=== PATIENT | male | born 1945 | race Caucasian/White ===

== ENCOUNTER 2016-04-02 07:30 | Observation (INO) | payer OTHER, MEDICARE ==
[2016-04-22] MEDS ORDERED: CHLORHEXIDINE GLUC HIBICLENS 118 ML BTL TP ONE (12:00)
[2016-04-23] MEDS ORDERED: ceFAZolin 2 GM/DEXTROSE 100 ML IV ONE ×2 (06:00→13:30)
[2016-04-23] MEDS ORDERED: THROMBIN (RECOMBINANT) 5,000 UNIT VIAL TP ONE ×2 (10:57→16:35)
[2016-04-23] MEDS ORDERED: BUPIVACAINE/EPI 0.25% 30 ML SDV ONE (10:57)
[2016-04-23] MEDS ORDERED: BACITRACIN 50,000 UNITS/10 ML SYR IRR ONE (10:58)
[2016-04-23] MEDS ORDERED: LIDOCAINE 1% 5 ML SDV ID PRN (12:55)
[2016-04-23] MEDS ORDERED: LR 1,000 ML IV ONE (12:55)
[2016-04-23] MEDS ORDERED: CHLORHEXIDINE GLUC HIBICLENS 118 ML BTL TP ONE (13:00)
[2016-04-23] MEDS ORDERED: CEFAZOLIN 2 GM/DEXTROSE/100 ML BAG IV ONE (13:09)
[2016-04-23] MEDS ORDERED: HYDROmorphONE/DILAUDID 1 MG/ML SYR IVP PRN (14:08)
[2016-04-23] MEDS ORDERED: morphINE PCA 30 MG/30 ML PCA IV PRN (14:08)
[2016-04-23] MEDS ORDERED: diphenhydrAMINE 25 MG CAP PO PRN (14:08)
[2016-04-23] MEDS ORDERED: TEMAZEPAM 15 MG CAP PO PRN (14:08)
[2016-04-23] MEDS ORDERED: DIAZEPAM 10 MG/2 ML SYR IVP PRN (14:08)
[2016-04-23] MEDS ORDERED: ONDANSETRON 4 MG/2 ML VIAL IVP PRN (14:08)
[2016-04-23] MEDS ORDERED: LACTULOSE 20 GM/30 ML UDCUP PO PRN (14:08)
[2016-04-23] MEDS ORDERED: MAGNESIUM HYDROXIDE 30 ML UDCUP PO PRN (14:08)
[2016-04-23] MEDS ORDERED: POLYETHYLENE GLYCOL 3350 17 GM PKT PO PRN (14:08)
[2016-04-23] MEDS ORDERED: HYDROCODONE/APAP 5/325 TAB PO PRN (14:08)
[2016-04-23] MEDS ORDERED: NALOXONE HCL 0.4 MG/ML INJ IVP PRN (14:08)
[2016-04-23] MEDS ORDERED: DIAZEPAM 5 MG TAB PO PRN (14:08)
[2016-04-23] MEDS ORDERED: BISACODYL 10 MG SUPP PR PRN (14:08)
[2016-04-23] MEDS ORDERED: ROCURONIUM 50 MG/5 ML VIAL ONE (14:10)
[2016-04-23] MEDS ORDERED: PROPOFOL/EMULSION 500 MG/50 ML BOTTLE IV ONE ×2 (14:10→16:01)
[2016-04-23] MEDS ORDERED: METOCLOPRAMIDE 10 MG/2 ML VIAL ONE (14:11)
[2016-04-23] MEDS ORDERED: MIDAZOLAM 2 MG/2 ML VIAL ONE (14:11)
[2016-04-23] MEDS ORDERED: LIDOCAINE 2% 100 MG/5 ML SYR IVP ONE (14:11)
[2016-04-23] MEDS ORDERED: DEXAMETHASONE 4 MG/ML VIAL ONE ×2 (14:11)
[2016-04-23] MEDS ORDERED: DESFLURANE 240 ML BOTTLE IH ONE (15:08)
[2016-04-23] MEDS ORDERED: SUGAMMADEX SODIUM 200 MG/2 ML VIAL IVP ONE (17:23)
--- NOTE | 2016-04-23 17:50 | SOAPPROG ---
SOAP Progress Note Assessment/Plan: Post Op Visit: S: Awake and alert. Pt with expected neck pain O: AFVSS/PERRLA/EOMI no droop CN 2-12 grossly intact +lt touch 5/5 BUE/BLE = neck soft and supple CDI A/P: 70 yo male that is s/p ACDF C3/4 and C4/5 -orders in place -call with any questions or concerns -pt seen by Dr Calixto as well 04/23/16 17:47 ICD10 Worksheet Patient Problems: Problems Problem Status Onset Arthrodesis status Acute Cervicalgia Acute Stenosis, cervical spine Acute - ICD10 Problem Qualifiers (1) Cervicalgia (2) Stenosis, cervical spine (3) Arthrodesis status
[2016-04-23] MEDS ORDERED: fentaNYL 100 MCG/2 ML INJ ONE (19:14)
--- NOTE | 2016-04-23 20:09 | GOP ---
[f rep st] OPERATIVE REPORT DATE OF OPERATION: 04/23/2016 SURGEON: Aminata Calixto MD [employer]OL [employer] DRIVER: Richard New PA-C PREOPERATIVE DIAGNOSIS: 1. Severe spinal stenosis with cervical myelopathy C3-4, C4-5. 2. Prior cervical fusion C7-T1. 3. Cervical degenerative disk disease throughout the cervical spine. POSTOPERATIVE DIAGNOSIS: 1. Severe spinal stenosis with cervical myelopathy C3-4, C4-5. 2. Prior cervical fusion C7-T1. 3. Cervical degenerative disk disease throughout the cervical spine. PROCEDURE PERFORMED: Anterior cervical diskectomy with arthrodesis and decompression C3-4, C4-5. (2 6011, 2252), placement of biomechanical intervertebral device C3-4, C4-5 (90647 x 2), same-incision bone graft harvest, microscope, anterior cervical instrumentation C3, C4, C5 (21711). FINDINGS: ESTIMATED BLOOD LOSS: 400 cc. DESCRIPTION OF PROCEDURE: The patient was taken to the operating room, placed in the supine positio n. General anesthesia was begun. A midline shoulder roll was placed. His neck was kept neutral. The occiput was extended. He was sterilely prepped and draped in usual fashion. We made a transver se incision in the superior left neck crease. The subcutaneous tissue was dissected with Bovie caut lorena just through the platysma, and we then used a combination of sharp and blunt dissection, working our way down medial to the sternocleidomastoid and lateral to the strap muscles, down to the prever tebral space. The dissection was very straightforward and took really no time at all. We set the e sophagus medially, shot a localizing x-ray, and then dissected the longus colli muscles off the spin e at C3-4, C4-5. We placed distraction pins at C4 and C5 and then under the microscope removed the C4-5 disk and drilled the cartilaginous endplates. We then harvested subchondral bone for autologou s grafting purposes and chose an 8 x 14 x 16 mm lordotic PEEK cage coated with titanium. It was pac ked with a large amount of bone autograft. We then under the scope opened the PLL and decompressed the thecal sac and the neural foramina bilaterally. A nice decompression was obtained. There was s ome epidural bleeding, particularly at the shoulder of the exiting C5 roots, and this was easily con trolled. We placed our implant in at this level and we were happy with its positioning. We then mo nirav our distraction pin and went to the C3-4. Here, we did likewise. We removed the disk completel y, drilled and harvested subchondral bone for autologous grafting purposes, and then we began to ope n the posterior longitudinal ligament and decompress the thecal sac. The PLL was thickened in this location and there was really very substantial epidural bleeding. We were able to get an excellent, wide decompression at this level as well, but the epidural bleeding was profuse and we continued to work through it. It was not controllable with bipolar because it was really at the bony edges down underneath the decompressed area, but it was easily controlled with a small piece of Gelfoam. We r emoved our distraction pins and harvested some additional bone graft material from the ventral osteo phytes at C3-4, 4-5, and use this to pack into an 8 mm lordotic PEEK intervertebral device. We then reinserted the distraction pins, distracted at C3-4, removed the Gelfoam that was in the disk space , and there was virtually no bleeding. We put a tiny piece of Gelfoam just posterior to our implant and then put the implant in, and there was no bleeding once the implant was in place. Motor and so matosensory-evoked potentials were stable throughout surgery. We released our distraction pins, the n removed them, then placed Gelfoam bullets in the holes that remained, and then chose a 43 mm Zevo plate and bent the plate to increase the cervical lordosis. We then placed 15 mm screws rostrally a nd caudally, shot an x-ray. We were happy with the hardware. We then placed the remaining 4 screws in (for a total of 6) and locked them according to company specification, and this was confirmed wi th both my PA and the rep in the room. All 6 screws had been locked. We then achieved meticulous h emostasis and closed the incision in multiple layers using Vicryl sutures. Running PDS was placed i n the skin itself. There were no complications. COMPLICATIONS: None. INSTRUMENTATION: A 43 mm Med[employer]onic Zevo plate with 3.5 x 15 mm screws and we used 8 x 16 x 14 mm an atomic PTC cages. INDICATION FOR THE PROCEDURE: The patient is a 70-year-old with chronic left C8 radiculopathy that responded relatively well to C7-T1 anterior cervical diskectomy and fusion, but he had critical spin al stenosis at 3-4, 4-5, and since his prior surgery, over the last several months, he has developed increasing difficulty with his arms, and his MRI does demonstrate critical stenosis at those upper levels. I suggested a 2-level ACDF at C3-4, C4-5, and the risk of esophageal injury, carotid injury , recurrent laryngeal nerve injury, pseudoarthrosis, adjacent segment disease, the possible need for posterior spine surgery, was discussed. His MRI did demonstrate circumferential compression at 3-4 , 4-5, and the anterior compression would be addressed with this approach. I did not want to consid er a posterior fusion at this time, but this may become necessary in the future. He understood ther e was risk of additional spine surgery, as well as risk of spinal cord injury, although that risk is quite low. He accepted these risks and wanted to proceed. /[id number]/MODL
[2016-04-23] MEDS: NS W/ 20 KCl/L 1,000 ML IV SCH (20:29)
[2016-04-23] MEDS: SENNOSIDES/DOCUSATE SODIUM TAB PO SCH (20:52)
[2016-04-23] MEDS: ONDANSETRON DISINTEGRATING 4 MG TAB PO PRN (20:57)
[2016-04-23] MEDS ORDERED: FAMOTIDINE 20 MG/NACL 50 ML IV SCH (21:00)
[2016-04-24] MEDS: oxyCODONE IR 5 MG TAB PO PRN ×3 (00:21→14:01)
[2016-04-24] MEDS: ACETAMINOPHEN 325 MG TAB PO PRN ×2 (05:22→12:42)
[2016-04-24] MEDS: METHOCARBAMOL 750 MG TAB PO PRN ×2 (07:23→16:09)
--- NOTE | 2016-04-24 07:25 | NEUSURGPN ---
Date of Surgery: 04/23/16 Post Op Day: 1 Assessment/Plan: Assessment: 70 yo male that is s/p ACDF C3/4 and C4/5 POD #1 Plan: -tolerating collar fine -PT/OT/ST pending -collar at all times -pending c spine xrays -continue with current pain management strategy -call with any questions or concerns -pt seen by Dr Calixto as well -pending dc depending on how he does with therapies 04/23/16 17:47 Subjective: Awake and alert. NAD. Eating/drinking and voiding. No f/c/n/v/d. No smith/chest /abd or gu complaints. Objective: AFVSS/PERRLA/EOMI no droop CN 2-12 grossly intact +lt touch 5/5 BUE/BLE = neck soft and supple CDI Neuro Check Frequency: per routine Urinary Catheter in Place: No - Physician Discussed Patient with : Durga Patient Seen by : Durga Neurosurgery Physical Exam - Vitals, I&O, Labs I and O 04/23/16 04/24/16 04/25/16 05:59 05:59 05:59 Intake Total 600 Output Total 600 Balance 0 Weight 65.771 kg Intake: Oral (ml) 600 Output: Urine (ml) 600 Urinal 600 Other: Intake Quantity Yes Sufficient Number of Voids Urinal 1 Post Void Residual Scan Volume (ml) Urinal 63 Vital Signs Temp Pulse Resp BP Pulse Ox 36.6 C 76 15 114/68 98 04/24/16 04:46 04/24/16 04:46 04/24/16 04:46 04/24/16 04:46 04/24/16 04:46 ICD10 Worksheet Patient Problems: Problems Problem Status Onset Arthrodesis status Acute Cervicalgia Acute Stenosis, cervical spine Acute - ICD10 Problem Qualifiers (1) Cervicalgia (2) Stenosis, cervical spine (3) Arthrodesis status
[2016-04-24] MEDS: ONDANSETRON DISINTEGRATING 4 MG TAB PO PRN (08:27)
[2016-04-24] MEDS: SENNOSIDES/DOCUSATE SODIUM TAB PO SCH (08:34)
[2016-04-24] MEDS ORDERED: FAMOTIDINE 20 MG TAB PO SCH (09:00)
[2016-04-24] MEDS: NS W/ 20 KCl/L 1,000 ML IV SCH (11:21)
[2016-04-24 11:39] VITALS: O2SAT 96
[2016-04-24 15:41] VITALS: BP 120/74; PULSE 75; RESP 15; TEMP 97.5
[2016-04-26] MEDS ORDERED: ENOXAPARIN 40 MG/0.4 ML SYR SC SCH (09:00)
== END 2016-04-24 17:33 | disposition home or self-care (01) ==
LOC: INTOOBSV 04-23 11:30 → F3N 04-23 11:30
PROVIDERS: ADMIT Neurological Surgery; ATTEND Neurological Surgery
PROC: 0RG2070 Fusion of 2 or more Cervical Vertebral Joints with Autologous Tissue Substitute, Anterior Approach, Anterior Column, Open Approach (ICD-10-PCS; 2016-04-23)
PROC: 0PU307Z Supplement Cervical Vertebra with Autologous Tissue Substitute, Open Approach (ICD-10-PCS; 2016-04-23)
PROC: 0RG20A0 Fusion of 2 or more Cervical Vertebral Joints with Interbody Fusion Device, Anterior Approach, Anterior Column, Open Approach (ICD-10-PCS; principal; 2016-04-23 13:00)
PROC: 0PH304Z Insertion of Internal Fixation Device into Cervical Vertebra, Open Approach (ICD-10-PCS; 2016-04-23 13:00)
DX: M48.02 Spinal stenosis, cervical region (principal); M47.12 Other spondylosis with myelopathy, cervical region; Z98.1 Arthrodesis status; M50.020 Cervical disc disorder with myelopathy, mid-cervical region, unspecified level; M50.30 Other cervical disc degeneration, unspecified cervical region; M54.12 Radiculopathy, cervical region; M79.602 Pain in left arm
CPT/HCPCS: 92610-GN; 97161-GP; 97165-GO; 97535-GO; C1713; G8978-GP-CI; G8979-GP-CH; G8987-GO-CJ; G8988-GO-CH; G8996-GN-CI; G8997-GN-CI; J0690; J1100; J2001; J2250; J2405; J2704; J2765; J3010

== ENCOUNTER 2016-04-25 10:15 | Inpatient (IN) | payer OTHER, MEDICARE ==
[2016-04-25] MEDS ORDERED: ONDANSETRON 4 MG/2 ML VIAL IVP ONE (10:54)
[2016-04-25] MEDS ORDERED: HYDROmorphONE/DILAUDID 1 MG/ML SYR IVP ONE (10:54)
--- NOTE | 2016-04-25 11:12 | EDPHY ---
H & P Time Seen by Provider: 04/25/16 11:09 HPI/ROS: Chief complaint. Postoperative pain and fever HPI. 70-year-old male 2 days postop for ACDF of cervical 3/4, 4/5 here for pain control. He is using oxycodone without relief. He has bilateral shoulder pain as well as neck pain. Fever this morning to 99.9 degrees. Some cough and congestion. Chills yesterday. No urinary symptoms or vomiting or diarrhea. ROS Constitutional. Fever and chills Eyes. no problems with vision ENT. no sore throat, no nasal drainage Cardiovascular. no chest pain Respiratory. no shortness of breath, no cough Abdominal. no abdominal pain, no nausea/vomiting, no diarrhea . no problems urinating MS. Neck pain and bilateral shoulder pain Skin. no rash Lymph. no swollen glands Neuro. no headache, no dizziness, no difficulty walking or with speech Past Medical/Surgical History: Past medical history significant for prior surgical surgery rotator cuff surgery Social History: , nonsmoker, no alcohol Smoking Status: Never smoked Physical Exam: General Appearance: Alert well-developed male mild distress vital signs are stable. Afebrile Eyes: Pupils equal and round no pallor or injection. ENT, pharynx without injection Respiratory: No retractions mild inspiratory expiratory rhonchi Cardiovascular: Regular rate and rhythm. Gastrointestinal: Abdomen is soft and nontender, no masses, bowel sounds normal. Neurological: Awake and alert, sensory and motor exams grossly normal. Skin: Incision wound in the anterior neck is without evidence of infection Musculoskeletal: Neck is supple nontender. Extremities symmetrical, full range of motion. Psychiatric: Patient is oriented X 3, there is no agitation. Constitutional: Initial Vital Signs Temperature (C) 36.8 C 04/25/16 10:24 Heart Rate 77 04/25/16 10:24 Respiratory Rate 18 04/25/16 10:24 Blood Pressure 143/89 H 04/25/16 10:24 O2 Sat (%) 97 04/25/16 10:24 O2 Delivery Mode Room Air Allergies/Adverse Reactions: Penicillins Allergy (Unverified 02/26/16 11:17) Rash wheat Allergy (Verified 03/04/16 16:16) Home Medications: Medication Instructions Recorded Acetaminophen [Tylenol 325mg (*)] 325 - 650 mg PO Q4HRS PRN #0 tab 04/24/16 Diazepam [Valium 5 MG (*)] 5 mg PO QID PRN #20 tab 04/24/16 Methocarbamol [Robaxin 750 mg (*)] 750 mg PO QID PRN #60 tab 04/24/16 Ondansetron Odt [Zofran Odt 4 mg 4 - 8 mg PO Q6HRS PRN #20 tab 04/24/16 (*)] Sennosides/Docusate Sodium 1 - 2 tab PO BID #30 tab 04/24/16 [Senokot-S] oxyCODONE IR [Oxycodone Ir (*)] 5 mg PO Q3HRS PRN #60 tab 04/24/16 Medical Decision Making - Diagnostics Imaging: Two view chest x-ray interpreted by me as showing no pneumonia Procedures: IV normal saline. Dilaudid and Zofran initially. Phenergan for continuing nausea ED Course/Re-evaluation: Re-evaluation at noon patient is stable. He is feeling improved after the Dilaudid . I discussed patient's case with Dr. Felice Calixto, neurosurgery, who sees the patient in the emergency department Patient and I discussed treatment plan including need for admission for pain control. He expresses understanding and agreement Differential Diagnosis: I considered pneumonia, wound infection, postop inflammation. Patient is mainly being admitted for pain control - Data Points Laboratory Results: Laboratory Results 04/25/16 10:51 04/25/16 10:51 04/25/16 04/25/16 10:51 10:51 WBC 10.82 10^3/uL H 10^3/uL (3.80-9.50) RBC 4.38 10^6/uL L 10^6/uL (4.40-6.38) Hgb 14.2 g/dL g/dL (13.7-17.5) Hct 40.8 % % (40.0-51.0) MCV 93.2 fL fL (81.5-99.8) MCH 32.4 pg pg (27.9-34.1) MCHC 34.8 g/dL g/dL (32.4-36.7) RDW 13.4 % % (11.5-15.2) Plt Count 187 10^3/uL 10^3/uL (150-400) MPV 10.4 fL fL (8.7-11.7) Neut % (Auto) 79.8 % H % (39.3-74.2) Lymph % (Auto) 10.3 % L % (15.0-45.0) [place] % (Auto) 9.0 % % (4.5-13.0) Eos % (Auto) 0.1 % L % (0.6-7.6) Baso % (Auto) 0.4 % % (0.3-1.7) Nucleat RBC Rel Count 0.0 % % (0.0-0.2) Absolute Neuts (auto) 8.65 10^3/uL H 10^3/uL (1.70-6.50) Absolute Lymphs (auto) 1.11 10^3/uL 10^3/uL (1.00-3.00) Absolute Monos (auto) 0.97 10^3/uL H 10^3/uL (0.30-0.80) Absolute Eos (auto) 0.01 10^3/uL L 10^3/uL (0.03-0.40) Absolute Basos (auto) 0.04 10^3/uL 10^3/uL (0.02-0.10) Absolute Nucleated RBC 0.00 10^3/uL 10^3/uL (0-0.01) Immature Gran % 0.4 % % (0.0-1.1) Immature Gran # 0.04 10^3/uL 10^3/uL (0.00-0.10) Sodium 138 mEq/L mEq/L (134-144) Potassium 3.8 mEq/L mEq/L (3.5-5.2) Chloride 101 mEq/L mEq/L (97-110) Carbon Dioxide 26 mEq/l mEq/l (22-31) Anion Gap 11 mEq/L mEq/L (8-16) BUN 17 mg/dL mg/dL (7-23) Creatinine 1.0 mg/dL mg/dL (0.7-1.3) Estimated GFR > 60 Glucose 113 mg/dL H mg/dL (70-100) Calcium 8.8 mg/dL mg/dL (8.5-10.4) Medications Given: Discontinued Medications Hydromorphone HCl (Dilaudid) 1 mg IVP EDNOW ONE Stop: 04/25/16 10:55 Last Admin: 04/25/16 11:11 Dose: 1 mg Ondansetron HCl (Zofran) 4 mg IVP EDNOW ONE Stop: 04/25/16 10:55 Last Admin: 04/25/16 11:11 Dose: 4 mg Departure - Departure Disposition: [facility] Inpatient Acute Clinical Impression: Postoperative pain Condition: Fair
[2016-04-25 11:28] LABS: % IMMATURE GRANULYOCYTES 0.4 % (0.0-1.1); ABSOLUTE IMMATURE GRANULOCYTES 0.04 10^3/uL (0.00-0.10); ADD DIFF? NO; ADD MORPH? NO; ADD SCAN? NO; ATYPICAL LYMPHOCYTE FLAG 0 (0-99); FRAGMENT RBC FLAG 0 (0-99); HEMATOCRIT 40.8 % (40.0-51.0); HEMOGLOBIN 14.2 g/dL (13.7-17.5); LEFT SHIFT FLG 0 (0-99); LIPEMIA HEMOLYSIS FLAG 90 (0-99); MEAN CELL HEMOGLOBIN 32.4 pg (27.9-34.1); MEAN CELL HEMOGLOBIN CONCENTR. 34.8 g/dL (32.4-36.7); MEAN CELL VOLUME 93.2 fL (81.5-99.8); MEAN PLATELET VOLUME 10.4 fL (8.7-11.7); PLATELET CLUMPS FLAG 0 (0-99); PLATELET COUNT 187 10^3/uL (150-400); RED BLOOD CELL COUNT 4.38 10^6/uL (4.40-6.38); RED CELL DISTRIBUTION WIDTH 13.4 % (11.5-15.2)
[2016-04-25 11:34] LABS: ANION GAP 11 mEq/L (8-16); CALCIUM 8.8 mg/dL (8.5-10.4); CARBON DIOXIDE 26 mEq/l (22-31); CHLORIDE 101 mEq/L (97-110); GLOMERULAR FILTRATION RATE > 60; GLUCOSE 113 mg/dL (70-100); POTASSIUM 3.8 mEq/L (3.5-5.2); SODIUM 138 mEq/L (134-144)
[2016-04-25] MEDS ORDERED: DIAZEPAM 5 MG TAB PO PRN (11:39)
[2016-04-25] MEDS ORDERED: ONDANSETRON 4 MG/2 ML VIAL IVP PRN (11:39)
[2016-04-25] MEDS ORDERED: MAGNESIUM HYDROXIDE 30 ML UDCUP PO PRN (11:39)
[2016-04-25] MEDS ORDERED: diphenhydrAMINE 25 MG CAP PO PRN (11:39)
[2016-04-25] MEDS ORDERED: DIAZEPAM 10 MG/2 ML SYR IVP PRN (11:39)
[2016-04-25] MEDS ORDERED: LACTULOSE 20 GM/30 ML UDCUP PO PRN (11:39)
[2016-04-25] MEDS ORDERED: BISACODYL 10 MG SUPP PR PRN (11:39)
[2016-04-25] MEDS ORDERED: ACETAMINOPHEN 325 MG TAB PO PRN (11:39)
[2016-04-25] MEDS ORDERED: oxyCODONE IR 5 MG TAB PO PRN (11:48)
[2016-04-25] MEDS ORDERED: PROMETHAZINE HCL 25 MG/ML INJ IVP ONE (12:09)
[2016-04-25] MEDS ORDERED: PROMETHAZINE HCL 25 MG/ML INJ ONE (12:09)
--- NOTE | 2016-04-25 13:11 | GHP ---
[f rep st] HISTORY AND PHYSICAL DATE OF ADMISSION: 04/25/2016 REASON FOR ADMISSION: Postoperative shoulder discomfort. HISTORY OF PRESENT ILLNESS: The patient is a 70-year-old who had a prior history of a C7-T1 ACDF back in 2012 and 2 days ago underwent a 2-level ACDF at C3-4, C4-5 without complication, and his postoperative x-rays looked great. He was discharged home late yesterday afternoon, but last night developed terrible interscapular pain that is typical for patients who undergo ACDF. He does have multilevel degenerative disk disease throughout the entire cervical spine. He does not have significant pain in the anterior neck where the incision is, but it is just in the back of the neck and in between the shoulder blades, as well as into the shoulders. He denies focal weakness in his extremities, but was coughing up some phlegm and had a fever, and we suggested that he go to the ER to get his pain under control. He was evaluated by Dr. Ernst Ham in the ER and we were notified. PAST MEDICAL HISTORY: Significant for rotator cuff surgery, prior ACDF. SOCIAL HISTORY: He is . A nonsmoker without alcohol. PHYSICAL EXAM: CARDIOVASCULAR: Per the ER, his heart has a regular rate and rhythm. LUNGS: Clear to auscultation with mild inspiratory rhonchi. BACK: His incision is clean, dry, and intact. There is no significant swelling at the skin. NEUROLOGIC: He is able to move all extremities without weakness. VITAL SIGNS: His temperature is 36.8, heart rate 77, respiratory rate 18, blood pressure is 143/89. IMAGING: A 2-view chest x-ray was performed in the emergency room and did not demonstrate pneumonia. ASSESSMENT AND PLAN: The patient is experiencing postoperative pain, as is quite typical after a 2-level ACDF and simply needs some help with pain control. His pain got out of control at home and we will admit him for comfort today and see how he does overnight and reassess him tomorrow. /[id number]/MODL MTDD
[2016-04-25] MEDS ORDERED: HYDROmorphONE/DILAUDID 1 MG/ML SYR ONE (14:06)
[2016-04-25] MEDS ORDERED: HYDROmorphONE/DILAUDID 2 MG/ML SYR IVP ONE (14:20)
[2016-04-25] MEDS ORDERED: PROMETHAZINE HCL 25 MG/ML INJ IVP PRN (16:44)
[2016-04-25] MEDS ORDERED: PROMETHAZINE HCL 25 MG TAB PO PRN (16:44)
[2016-04-25] MEDS: HYDROmorphONE/DILAUDID 1 MG/ML SYR IVP PRN ×2 (19:32→22:00)
[2016-04-25] MEDS: HYDROCODONE/APAP 10/325 TAB PO PRN (19:33)
[2016-04-25] MEDS: SENNOSIDES/DOCUSATE SODIUM TAB PO SCH (19:33)
[2016-04-25] MEDS: CYCLOBENZAPRINE 10 MG TAB PO PRN (19:33)
[2016-04-25] MEDS: ONDANSETRON DISINTEGRATING 4 MG TAB PO PRN (19:37)
[2016-04-26] MEDS: HYDROmorphONE/DILAUDID 1 MG/ML SYR IVP PRN (03:09)
[2016-04-26] MEDS: ONDANSETRON DISINTEGRATING 4 MG TAB PO PRN (03:11)
[2016-04-26] MEDS: HYDROCODONE/APAP 10/325 TAB PO PRN ×3 (03:11→17:37)
[2016-04-26] MEDS: CYCLOBENZAPRINE 10 MG TAB PO PRN ×2 (03:11→13:20)
[2016-04-26 05:14] LABS: % IMMATURE GRANULYOCYTES 0.4 % (0.0-1.1); ABSOLUTE IMMATURE GRANULOCYTES 0.03 10^3/uL (0.00-0.10); ADD DIFF? NO; ADD MORPH? NO; ADD SCAN? NO; ATYPICAL LYMPHOCYTE FLAG 0 (0-99); FRAGMENT RBC FLAG 0 (0-99); HEMATOCRIT 35.6 % (40.0-51.0); HEMOGLOBIN 12.2 g/dL (13.7-17.5); LEFT SHIFT FLG 0 (0-99); LIPEMIA HEMOLYSIS FLAG 90 (0-99); MEAN CELL HEMOGLOBIN 32.1 pg (27.9-34.1); MEAN CELL HEMOGLOBIN CONCENTR. 34.3 g/dL (32.4-36.7); MEAN CELL VOLUME 93.7 fL (81.5-99.8); MEAN PLATELET VOLUME 10.5 fL (8.7-11.7); PLATELET CLUMPS FLAG 0 (0-99); PLATELET COUNT 149 10^3/uL (150-400); RED CELL DISTRIBUTION WIDTH 13.2 % (11.5-15.2)
[2016-04-26] MEDS: HYDROmorphONE/DILAUDID 2 MG TAB PO PRN ×5 (07:53→23:52)
[2016-04-26] MEDS: ENOXAPARIN 40 MG/0.4 ML SYR SC SCH (09:16)
[2016-04-26] MEDS: SENNOSIDES/DOCUSATE SODIUM TAB PO SCH ×2 (09:16→19:48)
--- NOTE | 2016-04-26 12:04 | NEUSURGPN ---
Assessment/Plan: S: Patient doing better on new pain regimen. No troubles swallowing. No arm pain , but some numbness. No sob, cp, cough, fever, chills. O: NAD, VSS Neck soft, supple no induration, hard collar in place BUE/BLE 5/5= Sensation intact to lt touch A: 70 yo male POD #3 s/p ACDF C3-5 readmitted for pain control after going home on postop day #1. Plan: -Pain better on Dilaudid, [place] and Valium -PT.OT -Dispo- will see how patient does today, if on oral meds only can go home later today -Call with any new or worsening symptoms -Discussed with Dr. Calixto -Scripts on chart - Physician Discussed Patient with : Durga Neurosurgery Physical Exam - Vitals, I&O, Labs I and O 04/25/16 04/26/16 04/27/16 05:59 05:59 05:59 Intake Total 1400 Balance 1400 Weight 74.389 kg Intake: Oral (ml) 400 IV Infused (ml) 1000 Other: Intake Quantity Yes Sufficient Number of Voids Toilet 1 Vital Signs Temp Pulse Resp BP Pulse Ox 36.9 C 72 16 113/85 H 94 04/26/16 07:18 04/26/16 07:18 04/26/16 07:18 04/26/16 07:18 04/26/16 08:00 Laboratory Results 04/26/16 04:11 ICD10 Worksheet Patient Problems: Problems Problem Status Onset Postoperative pain Acute Arthrodesis status Acute Cervicalgia Acute Stenosis, cervical spine Acute
[2016-04-26] MEDS: POLYETHYLENE GLYCOL 3350 17 GM PKT PO PRN (19:48)
[2016-04-27] MEDS: CYCLOBENZAPRINE 10 MG TAB PO PRN ×2 (02:18→11:27)
[2016-04-27] MEDS: HYDROCODONE/APAP 10/325 TAB PO PRN (02:18)
[2016-04-27] MEDS: HYDROmorphONE/DILAUDID 2 MG TAB PO PRN (06:55)
[2016-04-27 07:42] VITALS: PULSE 104; RESP 16; TEMP 97.7
[2016-04-27] MEDS: POLYETHYLENE GLYCOL 3350 17 GM PKT PO PRN (08:34)
[2016-04-27] MEDS: ENOXAPARIN 40 MG/0.4 ML SYR SC SCH (08:36)
--- NOTE | 2016-04-27 08:47 | NEUSURGPN ---
Assessment/Plan: S: Patient doing better on new pain regimen. No troubles swallowing. No arm pain , but some numbness. No sob, cp, cough, fever, chills. O: NAD, VSS Neck soft, supple no induration, hard collar in place BUE/BLE 5/5= Sensation intact to lt touch A: 70 yo male POD #4 s/p ACDF C3-5 readmitted for pain control after going home on postop day #1. Plan: -Pain better on Dilaudid, [place] and Flexeril -PT.OT -Dispo- Home today, would like home health for 1 week to help with ADLs, will speak with case management -Home O2 order in- patient requiring o2 due to low sats -Call with any new or worsening symptoms -Discussed with Dr. Calixto -Scripts on chart - Physician Discussed Patient with : Durga Neurosurgery Physical Exam - Vitals, I&O, Labs I and O 04/26/16 04/27/16 04/28/16 05:59 05:59 05:59 Intake Total 1415 Balance 1415 Intake: Oral (ml) 1415 Other: Intake Quantity Yes Sufficient Number of Voids Toilet 2 Vital Signs Temp Pulse Resp BP Pulse Ox 36.5 C 104 H 16 77/63 L 96 04/27/16 07:39 04/27/16 07:39 04/27/16 07:39 04/27/16 07:39 04/27/16 07:39 ICD10 Worksheet Patient Problems: Problems Problem Status Onset Postoperative pain Acute Arthrodesis status Acute Cervicalgia Acute Stenosis, cervical spine Acute
[2016-04-27 08:53] VITALS: BP 117/65; O2SAT 86
[2016-04-27] MEDS: SENNOSIDES/DOCUSATE SODIUM TAB PO SCH (10:28)
== END 2016-04-27 11:38 | disposition home or self-care (01) | DRG 948 ==
LOC: F3N 15:04 → OBSVTOIN 04-26 12:05
PROVIDERS: ADMIT Neurological Surgery; ATTEND Neurological Surgery
DX: G89.18 Other acute postprocedural pain (principal); Z98.1 Arthrodesis status
CPT/HCPCS: 92526-GN; 92610-GN; 96374; 97161-GP; 97165-GO; 97530-GO; 97535-GO; C1713; G0378; G8978-GP-CI; G8978-GP-CJ; G8979-GP-CH; G8979-GP-CI; G8987-GO-CI; G8987-GO-CJ; G8988-GO-CH; G8988-GO-CI; G8989-GO-CI; G8996-GN-CI; G8996-GN-CJ; G8997-GN-CI; J0690; J1100; J1170; J1650; J2001; J2250; J2405; J2550; J2704; J2765; J3010

== ENCOUNTER 2016-04-30 12:28 | Emergency (ER) | payer OTHER, MEDICARE ==
--- NOTE | 2016-04-30 12:52 | EDPHY ---
H & P Stated Complaint: Recent neck surg;coughing up yellow mucous;doesn't feel good Time Seen by Provider: 04/30/16 12:44 HPI/ROS: CHIEF COMPLAINT: Sore throat HISTORY OF PRESENT ILLNESS: The patient is a 70 year old male s/p cervical fusion 04/23 presenting with sore throat. The patient was seen here 04/26 for severe post operative pain and was admitted for 3 days. Yesterday the patient developed a very horse voice. He has nausea due to the significant amount of sputum that he is coughing up and phlegm in his throat.The sputum is yellow/ brown color and very thick. He has a very sore throat causing pain with swallowing. He denies chest pain or dyspnea. Patient denies a fever, chest pain, palpitations, lightheadedness, dizziness. He has been up and moving about since the surgery. He does report lack of appetite secondary to swallowing phlegm. No history of coronary artery disease. No history of PEs, DVTs, or thromboembolic disease. REVIEW OF SYSTEMS: Aside from elements discussed in the HPI, a comprehensive 10-point review of systems was reviewed and is negative. PAST MEDICAL HISTORY: Cervical fusion 04/23 SOCIAL HISTORY: , at bedside. No alcohol. Nonsmoker. VITAL SIGNS: Reviewed by me GENERAL: Well-developed, well-nourished, resting comfortably in no respiratory distress. Patient has very hoarse voice. HEENT: Atraumatic. Eyes: No icterus, no injection. Mouth: Erythema on the soft palate, and the posterior pharynx. Thick white discharge on tongue that does not scrape off. Neck: Patient is in a cervical collar. No adenopathy. LUNGS: Clear to auscultation bilaterally, no wheezes, rhonchi or rales. CARDIAC: Regular rate and rhythm, no rubs, murmurs or gallops. ABDOMEN: Soft, nontender, nondistended, bowel sounds normal. BACK: No CVA tenderness. Cervical collar in place. EXTREMITIES: No trauma. No edema. Range of motion is normal throughout. NEURO: Alert and oriented, grossly nonfocal. SKIN: Warm and dry, no rash. PSYCHIATRIC: Normal mentation, no agitation. Portions of this note were transcribed by a medical assistant instructor. I personally performed a history, physical exam, medical decision making, and confirmed accuracy of information the transcribed note. Source: Patient - Personal History Current Tetanus Diphtheria and Acellular Pertussis (TDAP): Yes - Medical/Surgical History Hx Asthma: No Hx Chronic Respiratory Disease: No Hx Diabetes: No Hx Cardiac Disease: No Hx Renal Disease: No Hx Cirrhosis: No Hx Alcoholism: No Hx HIV/AIDS: No Hx Splenectomy or Spleen Trauma: No Other PMH: prior cervical, bilateral rotater cuff , cervical fusion 04/25 - Social History Smoking Status: Never smoked Drug Use: None Constitutional: Initial Vital Signs Temperature (C) 37.2 C 04/30/16 12:30 Heart Rate 84 04/30/16 12:30 Respiratory Rate 18 04/30/16 12:30 Blood Pressure 135/82 H 04/30/16 12:30 O2 Sat (%) 98 04/30/16 12:30 O2 Delivery Mode Room Air Allergies/Adverse Reactions: Penicillins Allergy (Intermediate, Verified 04/30/16 12:36) Rash wheat Allergy (Verified 04/30/16 12:36) Home Medications: Medication Instructions Recorded Acetaminophen [Tylenol 325mg (*)] 325 - 650 mg PO Q4HRS PRN #0 tab 04/24/16 Ondansetron Odt [Zofran Odt 4 mg 4 - 8 mg PO Q6HRS PRN #20 tab 04/24/16 (*)] Sennosides/Docusate Sodium 1 - 2 tab PO BID #30 tab 04/24/16 [Senokot-S] Cyclobenzaprine [Flexeril 10 MG 10 mg PO Q8HRS PRN #60 tab 04/27/16 (*)] HYDROcodone/APAP 10/325 [[place] 1 - 2 tab PO Q6HRS PRN #90 tab 04/27/16 10/325 (*)] HYDROmorphone HCL [Dilaudid 2 mg 2 - 4 mg PO Q4HRS PRN #90 tab 04/27/16 (*)] Polyethylene Glycol 3350 [Miralax 17 gm PO DAILY PRN #0 pkt 04/27/16 17 gm (*)] AZITHROMYCIN [Z-PACK] 250 mg PO DAILY #6 tab 04/30/16 Fluconazole [Diflucan (*)] 100 - 200 mg PO DAILY #0 tab 04/30/16 Medical Decision Making - Diagnostics Imaging: Study: X-ray of the chest was obtained. Results: No pneumonia. Images were interpreted by the radiologist, Dr. Marcial. I viewed the images myself on the PACS system. ED Course/Re-evaluation: Chest x-ray was ordered. Strep screen sent. Strep screen is negative. Chest x-ray demonstrates no pneumonia. Patient was placed on amoxicillin for bronchitis. I doubt pulmonary embolism with no tachycardia, tachypnea, hypoxemia or chest pain. Patient also received a prescription of fluconazole to use if needed for thrush. Unclear if the thick white plaques on the patient's tongue and posterior pharynx represent thrush; patient will begin taking the antibiotics for several days and if his erythema on the throat and tongue do not improve he will begin taking fluconazole. Differential Diagnosis: Differential diagnosis for the patient's symptom complex was considered including but not limited to viral versus bacterial bronchitis, strep throat, pulmonary emboli, upper respiratory infection, lower respiratory infection, and bronchospasm. - Data Points Laboratory Results: 04/30/16 04/30/16 Unknown 13:00 Group A Strep Screen NEGATIVE (NEGATIVE) Group A Strep DNA Pending Departure - Departure Disposition: Home, Routine, Self-Care Clinical Impression: Bronchitis Condition: Good Instructions: Acute Bronchitis (ED) Additional Instructions: Your chest x-ray today was normal, it did not show a pneumonia. Please take the full course of antibiotics as directed. Followup with your primary care physician as needed. Begin taking the fluconazole if your symptoms of sore throat, redness on throat , and the white plaques, or not improving after several days of antibiotics. Referrals: Priya Warner MD [Primary Care Provider] - As per Instructions Prescriptions: AZITHROMYCIN [Z-PACK] 250 mg PO DAILY #6 tab Fluconazole [Diflucan (*)] 100 - 200 mg PO DAILY #0 tab Report Scribed for: Payal Warner Report Scribed by: Abbi Lomeli Date of Report: 04/30/16 Time of Report: 13:02
[2016-04-30 14:47] VITALS: BP 125/85; PULSE 82; RESP 14; TEMP 98.4; O2SAT 94
== END 2016-04-30 14:47 | disposition home or self-care (01) ==
DX: J20.9 Acute bronchitis, unspecified (principal)

== ENCOUNTER → 2016-06-06 | Outpatient (CLI) | payer OTHER, MEDICARE | LOC: BMCIMAGING 08:58 | PROVIDERS: ATTEND Neurological Surgery | DX: Z47.89 Encounter for other orthopedic aftercare (principal); Z98.1 Arthrodesis status ==

== ENCOUNTER → 2016-09-04 | Outpatient (CLI) | payer OTHER, MEDICARE | LOC: BMCIMAGING 12:54 | PROVIDERS: ATTEND Internal Medicine | DX: M25.552 Pain in left hip (principal); M79.662 Pain in left lower leg; M25.572 Pain in left ankle and joints of left foot ==

== ENCOUNTER 2016-09-14 11:39 | Emergency (ER) | payer OTHER, MEDICARE ==
[2016-09-14 11:46] VITALS: RESP 16; TEMP 97.5
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
[2016-09-14 14:14] VITALS: BP 113/76; PULSE 78; O2SAT 94
== END 2016-09-14 14:14 | disposition home or self-care (01) ==
DX: S32.592A Other specified fracture of left pubis, initial encounter for closed fracture (principal); V11.4XXA Pedal cycle driver injured in collision with other pedal cycle in traffic accident, initial encounter; Y92.410 Unspecified street and highway as the place of occurrence of the external cause; Y99.8 Other external cause status; Y93.55 Activity, bike riding

== ENCOUNTER → 2016-09-15 | Outpatient (CLI) | payer OTHER, MEDICARE | LOC: BMCIMAGING 11:07 | PROVIDERS: ATTEND Nurse Practitioner | DX: M50.33 Other cervical disc degeneration, cervicothoracic region (principal); Z98.1 Arthrodesis status ==

== ENCOUNTER → 2016-10-27 | Outpatient (CLI) | payer OTHER, MEDICARE | LOC: BMCIMAGING 09:00 | PROVIDERS: ATTEND Orthopaedic Surgery | DX: S32.592A Other specified fracture of left pubis, initial encounter for closed fracture (principal) ==

== ENCOUNTER → 2017-01-21 | Outpatient (CLI) | payer OTHER, MEDICARE | LOC: BMCIMAGING 12:06 | PROVIDERS: ATTEND Orthopaedic Surgery Hand Surgery | DX: M18.11 Unilateral primary osteoarthritis of first carpometacarpal joint, right hand (principal) ==

== ENCOUNTER → 2017-04-08 | Outpatient (CLI) | payer OTHER, MEDICARE | LOC: BMCIMAGING 07:30 | PROVIDERS: ATTEND Neurological Surgery | DX: M85.88 Other specified disorders of bone density and structure, other site (principal) ==

== ENCOUNTER → 2018-02-26 | Outpatient (CLI) | payer OTHER, MEDICARE | LOC: BMCIMAGING 08:37 | PROVIDERS: ATTEND Physician Assistant | DX: M50.33 Other cervical disc degeneration, cervicothoracic region (principal); T84.89XA Other specified complication of internal orthopedic prosthetic devices, implants and grafts, initial encounter; Z98.1 Arthrodesis status ==